=== PATIENT | female | born 1945 | race Caucasian/White ===

== ENCOUNTER 2019-07-02 12:21 | Inpatient (IN) | payer OTHER ==
[~2019-07-02] VITALS: Ht 160 cm; Wt 58.1 kg
[2019-07-02 12:40] VITALS: Ht 160 cm; Wt 58.1 kg
[2019-07-02 15:10] LABS: BASOPHIL % 0.6 % (0-2); PLATELET COUNT 326 x10^3mcL (130-400); RED CELL DISTRIBUTION WIDTH 13.1 % (11.5-14.5)
[2019-07-02 15:49] LABS: ALBUMIN 3.4 g/dL (3.4-5.0); ALT/SGPT 31 U/L (14-59); AST/SGOT 24 U/L (15-37); BILIRUBIN TOTAL 0.7 mg/dL (0.20-1.00); CARBON DIOXIDE 27.4 mmol/L (21-32); CHLORIDE SERUM 105 mmol/L (98-107); CREATININE SERUM 0.8 mg/dL (0.6-1.0); GLUCOSE SERUM 120 mg/dL (74-106); POTASSIUM SERUM 3.8 mmol/L (3.5-5.1); SODIUM SERUM 140 mmol/L (136-145); TOTAL PROTEIN, SERUM 6.9 g/dL (6.4-8.2)
[2019-07-02 15:50] LABS: ALKALINE PHOSPHATASE 52 U/L (46-116)
[2019-07-02 16:09] VITALS: BP 127/74
[2019-07-02 16:16] LABS: T3 TOTAL 1.38 ng/mL
[2019-07-02 16:38] LABS: CHOLESTEROL/HDL RATIO 2.7; FREE T4 1.05 ng/dL (0.76-1.46); FREE THYROXINE INDEX 3.8 ug/dL (1.4-4.5); T4(THYROXINE) 10.9 ug/dL (4.7-13.3)
[2019-07-02 21:09] VITALS: BP 102/53
[2019-07-03 05:54] VITALS: BP 101/57
[2019-07-03 08:10] LABS: BASOPHIL % 0.4 % (0-2); PLATELET COUNT 257 x10^3mcL (130-400); RED CELL DISTRIBUTION WIDTH 13.1 % (11.5-14.5)
[2019-07-03 08:19] LABS: CALCIUM 8.7 mg/dL (8.5-10.1); CHLORIDE SERUM 108 mmol/L (98-107); CREATININE SERUM 0.9 mg/dL (0.6-1.0); GLUCOSE SERUM 82 mg/dL (74-106); MAGNESIUM 1.8 mg/dL (1.8-2.4); PHOSPHOROUS 3.4 mg/dL (2.5-4.9); POTASSIUM SERUM 3.9 mmol/L (3.5-5.1); SODIUM SERUM 141 mmol/L (136-145)
[2019-07-03 08:33] LABS: PATH REVIEW for HEMA NO
[2019-07-03 08:43] VITALS: BP 104/52
[2019-07-03 11:52] VITALS: BP 111/55
[2019-07-03 15:12] LABS: microscopic required? NO
[2019-07-03 15:24] LABS: urine erythrocyte NEGATIVE (NEGATIVE)
[2019-07-03 16:25] VITALS: BP 103/48
[2019-07-03 19:50] VITALS: BP 90/42
[2019-07-04 05:05] VITALS: BP 98/48
[2019-07-04 07:53] LABS: BASOPHIL % 0.2 % (0-2); PLATELET COUNT 246 x10^3mcL (130-400); RED CELL DISTRIBUTION WIDTH 13.6 % (11.5-14.5)
[2019-07-04 08:00] VITALS: BP 113/53
[2019-07-04 08:38] LABS: CALCIUM 8.4 mg/dL (8.5-10.1); CARBON DIOXIDE 26.5 mmol/L (21-32); CHLORIDE SERUM 105 mmol/L (98-107); CREATININE SERUM 0.8 mg/dL (0.6-1.0); GLUCOSE SERUM 102 mg/dL (74-106); POTASSIUM SERUM 4.1 mmol/L (3.5-5.1); SODIUM SERUM 139 mmol/L (136-145)
[2019-07-04 08:39] LABS: MAGNESIUM 1.8 mg/dL (1.8-2.4)
[2019-07-04 12:04] VITALS: BP 112/48
[2019-07-04 16:39] VITALS: BP 106/56
[2019-07-04 19:39] VITALS: BP 107/51
[2019-07-05 05:35] VITALS: BP 101/55
[2019-07-05 07:23] LABS: BASOPHIL % 0.6 % (0-2); PLATELET COUNT 255 x10^3mcL (130-400); RED CELL DISTRIBUTION WIDTH 13.6 % (11.5-14.5)
[2019-07-05 07:25] LABS: CALCIUM 8.8 mg/dL (8.5-10.1); CARBON DIOXIDE 28.2 mmol/L (21-32); CHLORIDE SERUM 106 mmol/L (98-107); CREATININE SERUM 0.7 mg/dL (0.6-1.0); GLUCOSE SERUM 90 mg/dL (74-106); MAGNESIUM 1.9 mg/dL (1.8-2.4); PHOSPHOROUS 3.6 mg/dL (2.5-4.9); POTASSIUM SERUM 4.3 mmol/L (3.5-5.1); SODIUM SERUM 141 mmol/L (136-145)
[2019-07-05 12:13] VITALS: BP 125/53
[2019-07-05 16:12] VITALS: BP 106/62
[2019-07-05 19:43] VITALS: BP 111/61
[2019-07-06 04:59] VITALS: BP 93/46
[2019-07-06 08:03] LABS: CALCIUM 8.5 mg/dL (8.5-10.1); CARBON DIOXIDE 25.8 mmol/L (21-32); CHLORIDE SERUM 105 mmol/L (98-107); CREATININE SERUM 0.9 mg/dL (0.6-1.0); GLUCOSE SERUM 155 mg/dL (74-106); MAGNESIUM 1.8 mg/dL (1.8-2.4); PHOSPHOROUS 2.8 mg/dL (2.5-4.9); SODIUM SERUM 139 mmol/L (136-145)
[2019-07-06 08:05] LABS: BASOPHIL % 0.2 % (0-2); PLATELET COUNT 270 x10^3mcL (130-400); RED CELL DISTRIBUTION WIDTH 13.3 % (11.5-14.5)
[2019-07-06 08:24] VITALS: BP 113/50
[2019-07-06 12:51] VITALS: BP 107/56
[2019-07-06 18:00] VITALS: BP 110/61
[2019-07-06 20:20] VITALS: BP 107/53
[2019-07-07 04:38] VITALS: BP 95/57
[2019-07-07 06:55] LABS: BASOPHIL % 0.2 % (0-2); PLATELET COUNT 291 x10^3mcL (130-400); RED CELL DISTRIBUTION WIDTH 13.4 % (11.5-14.5)
[2019-07-07 07:29] VITALS: BP 113/64
[2019-07-07 07:59] LABS: CALCIUM 8.6 mg/dL (8.5-10.1); CARBON DIOXIDE 28.1 mmol/L (21-32); CHLORIDE SERUM 106 mmol/L (98-107); CREATININE SERUM 0.7 mg/dL (0.6-1.0); GLUCOSE SERUM 95 mg/dL (74-106); POTASSIUM SERUM 4.4 mmol/L (3.5-5.1); SODIUM SERUM 137 mmol/L (136-145)
[2019-07-07 12:39] VITALS: BP 103/61
[2019-07-07 17:38] VITALS: BP 99/57
[2019-07-07 20:48] VITALS: BP 97/54
[2019-07-08 05:02] VITALS: BP 122/56
[2019-07-08 06:46] LABS: BASOPHIL % 0.2 % (0-2); PLATELET COUNT 374 x10^3mcL (130-400); RED CELL DISTRIBUTION WIDTH 13.6 % (11.5-14.5)
[2019-07-08 06:52] LABS: CARBON DIOXIDE 27.8 mmol/L (21-32); CHLORIDE SERUM 104 mmol/L (98-107); CREATININE SERUM 0.7 mg/dL (0.6-1.0); GLUCOSE SERUM 121 mg/dL (74-106); POTASSIUM SERUM 4.2 mmol/L (3.5-5.1); SODIUM SERUM 138 mmol/L (136-145)
[2019-07-08 09:08] VITALS: BP 107/64
[2019-07-08 13:40] VITALS: BP 103/56
[2019-07-08 16:54] VITALS: BP 114/61
[2019-07-08 21:27] VITALS: BP 97/54
[2019-07-09 06:17] VITALS: BP 106/57
[2019-07-09 08:22] VITALS: BP 114/70
[2019-07-09] MEDS ORDERED: METHOCARBAMOL500 MG PO (11:24)
[2019-07-09] MEDS ORDERED: KEFLEX500 M1 PO (11:25)
[2019-07-09] MEDS ORDERED: D-10001 TAB PO (11:25)
[2019-07-09 12:11] VITALS: BP 119/73
[2019-07-09 13:15] VITALS: BP 119/73
[2019-07-09 16:10] VITALS: BP 111/47
== END 2019-07-09 21:00 | DRG 489 ==
LOC: ED 12:21 → MU 15:04
PROVIDERS: Emergency Medicine; ADMIT Student in an Organized Health Care Education/Training Program
PROC: 0QSG04Z Reposition Right Tibia with Internal Fixation Device, Open Approach (ICD-10-PCS; principal; 2019-07-06)
PROC: 0MQN0ZZ Repair Right Knee Bursa and Ligament, Open Approach (ICD-10-PCS; 2019-07-06)
PROC: 0QSJXZZ Reposition Right Fibula, External Approach (ICD-10-PCS; 2019-07-06)
DX: S82.141A Displaced bicondylar fracture of right tibia, initial encounter for closed fracture (principal); S82.831A Other fracture of upper and lower end of right fibula, initial encounter for closed fracture; S83.411A Sprain of medial collateral ligament of right knee, initial encounter; I10 Essential (primary) hypertension; D64.9 Anemia, unspecified; Z86.14 Personal history of Methicillin resistant Staphylococcus aureus infection; Z68.20 Body mass index [BMI] 20.0-20.9, adult; V88.8XXA Person injured in other specified noncollision transport accidents involving motor vehicle, nontraffic, initial encounter; Y92.9 Unspecified place or not applicable
CPT/HCPCS: 76001; 84439; 97110-GP; 97116-GP; 97530-GP; C1713; G0378; J0690; J1170; J1644; J1885; J2270; J2405; J2704; J3010; J3370; J3490; J7030; J7050; J7120; Q0092

== ENCOUNTER → 2019-08-02 | Outpatient (CLI) | payer OTHER ==
[~2019-08-02] MED LIST: D-10001 TAB PO; KEFLEX500 M1 PO; METHOCARBAMOL500 MG PO
== END | disposition home or self-care (01) ==
LOC: RD 09:49
DX: S82.141A Displaced bicondylar fracture of right tibia, initial encounter for closed fracture (principal); X58.XXXA Exposure to other specified factors, initial encounter; Y92.9 Unspecified place or not applicable

== ENCOUNTER → 2019-11-11 | Outpatient (CLI) | payer OTHER | END | disposition home or self-care (01) | LOC: RD 15:17 | DX: S82.141A Displaced bicondylar fracture of right tibia, initial encounter for closed fracture (principal); X58.XXXA Exposure to other specified factors, initial encounter; Y92.9 Unspecified place or not applicable | CPT/HCPCS: Q0092 ==